=== PATIENT | female | born 1940 | race Caucasian/White ===

== ENCOUNTER 2024-08-26 08:07 | Outpatient (CLI) | payer MEDICARE, SELFPAY ==
--- NOTE | ~2024-08-26 | US_ITS ---
Limited Abdominal Sonogram: Real-time sonographic imaging of the right upper quadrant was performed. Clinical History: Cirrhosis Findings: The liver appears heterogeneous, with no evidence of mass lesion or bile duct dilatation. Nodular contour of liver noted. Main portal vein demonstrates normal direction of flow. The gallbladd er is absent, compatible with prior cholecystectomy. The common bile duct measures 5 mm. The visuali zed pancreas, aorta, and IVC are unremarkable. Impression: Cirrhotic morphology of the liver. No focal mass or biliary dilatation evident. Status post cholecystectomy. Reviewed, dictated and finalized at location . Impression: Cirrhotic morphology of the liver. No focal mass or biliary dilatation evident. Status post cholecystectomy.
== END 2024-08-26 08:08 | disposition home or self-care (01) ==
PROVIDERS: PCP Family Medicine Sports Medicine; Visit Provider Internal Medicine Gastroenterology
DX: K74.60 Unspecified cirrhosis of liver (principal); Z90.49 Acquired absence of other specified parts of digestive tract
CPT/HCPCS: 76705